=== PATIENT | male | born 1975 | race Caucasian/White ===

== ENCOUNTER 2017-09-30 18:26 | Emergency (ER) | payer SELFPAY | END 2017-09-30 19:14 | disposition home or self-care (01) | LOC: ER 19:14 | DX: S70.361A Insect bite (nonvenomous), right thigh, initial encounter (principal); S20.462A Insect bite (nonvenomous) of left back wall of thorax, initial encounter; L03.818 Cellulitis of other sites; L03.115 Cellulitis of right lower limb; W57.XXXA Bitten or stung by nonvenomous insect and other nonvenomous arthropods, initial encounter; Y93.89 Activity, other specified; Y92.89 Other specified places as the place of occurrence of the external cause; Y99.8 Other external cause status | CPT/HCPCS: 99283 ==